=== PATIENT | female | born 1980 | race Caucasian/White ===

== ENCOUNTER 2022-07-09 19:55 | Emergency (ER) | payer SELFPAY ==
[~2022-07-09] VITALS: Ht 167.6 cm; Wt 54.4 kg
[2022-07-09 20:00] VITALS: BP 123/75
[2022-07-09] MEDS ORDERED: GELATIN SPONGE,ABSORBABLE 1 SPONGE SPONGE TP ONE (20:06)
[2022-07-09] MEDS ORDERED: METOCLOPRAMIDE HCL 10 MG/2 ML VIAL ONE (20:12)
[2022-07-09] MEDS ORDERED: METOCLOPRAMIDE HCL 10 MG/2 ML VIAL IM ONE (20:30)
[2022-07-09] MEDS ORDERED: HYDROCODONE/APAP 5/325MG TABLET PO ONE (21:00)
[2022-07-09] MEDS ORDERED: IBUPROFEN 600 MG TABLET PO ONE (21:00)
[2022-07-09] MEDS ORDERED: TDAP [DIPH/PERTUSSIS/TET] 0.5 ML VIAL IM ONE (21:01)
[2022-07-09] MEDS ORDERED: IBUPROFEN 600 MG TABLET ONE (21:03)
[2022-07-09] MEDS ORDERED: HYDROCODONE/APAP 5/325MG TABLET ONE (21:03)
--- NOTE | 2022-07-09 21:06 | NUR ---
Patient discharged to home in stable condition. Written and verbal after care instructions given. Patient verbalizes understanding of instruction.
== END 2022-07-09 21:27 | disposition home or self-care (01) ==
LOC: ER 20:03
DX: S61.011A Laceration without foreign body of right thumb without damage to nail, initial encounter (principal); R11.0 Nausea; Z88.0 Allergy status to penicillin; W45.8XXA Other foreign body or object entering through skin, initial encounter; Y93.89 Activity, other specified; Y92.89 Other specified places as the place of occurrence of the external cause; Y99.8 Other external cause status
CPT/HCPCS: 90715; J2765

== ENCOUNTER 2024-04-14 05:24 | Emergency (ER) | payer SELFPAY ==
[~2024-04-14] VITALS: Ht 175.3 cm; Wt 65.8 kg
[2024-04-14 07:00] LABS: APPEARANCE,URINE TURBID (CLEAR); BILIRUBIN,URINE 1+ (NEGATIVE); BLOOD, URINE 3+ Ery/uL (NEGATIVE); COLOR,URINE DARK YELLOW (YELLOW); KETONES,URINE NEGATIVE (NEGATIVE); LEUKOCYTE ESTERASE ,URINE TRACE (NEGATIVE); NITRITE, URINE NEGATIVE (NEGATIVE); PH,URINE 5.5 (5.0-8.0); PROTEIN,URINE 3+ mg/dl (NEGATIVE); UGLUCOSE NEGATIVE (NEGATIVE); UROBILINOGEN,URINE 0.2 EU/dL (0.2)
[2024-04-14 07:02] LABS: PREGNANCY TEST URINE QUAL NEGATIVE (NEGATIVE)
[2024-04-14 07:21] LABS: ADD URINE CULTURE NO; BACTERIA,URINE Rare /HPF (None Seen); RBC,URINE 21-50 /HPF (0-2); SQUAMOUS EPITHELIAL CELL,UR Many /HPF (None Seen)
[2024-04-14] MEDS ORDERED: NITR100C6 PO (07:24)
[2024-04-14 07:48] VITALS: BP 106/75; TEMP 98.4; O2SAT 99
== END 2024-04-14 07:48 | disposition home or self-care (01) ==
LOC: ER 05:30
DX: N39.0 Urinary tract infection, site not specified (principal); R30.0 Dysuria; R31.9 Hematuria, unspecified; Z79.899 Other long term (current) drug therapy; Z88.0 Allergy status to penicillin
CPT/HCPCS: 81001; 84703-TC; 87086-TC